=== PATIENT | female | born 2005 | race Caucasian/White ===

== ENCOUNTER 2024-08-04 11:22 | Emergency (ER) | payer BC ==
[~2024-08-04] VITALS: Ht 175.3 cm; Wt 81.6 kg
[2024-08-04 11:38] VITALS: BP 114/59; TEMP 99.1
[2024-08-04 13:00] VITALS: O2SAT 98
== END 2024-08-04 13:45 | disposition left against medical advice (07) ==
LOC: ER 11:22
DX: M25.561 Pain in right knee (principal); G89.29 Other chronic pain; Z53.21 Procedure and treatment not carried out due to patient leaving prior to being seen by health care provider